=== PATIENT | male | born 2000 | race Caucasian/White ===

== ENCOUNTER 2023-10-25 11:34 | Emergency (ER) | payer OTHER ==
[~2023-10-25] VITALS: Ht 182.9 cm; Wt 108.9 kg
[2023-10-25 11:59] VITALS: BP 131/72; PULSE 74; RESP 18; TEMP 98.3; O2SAT 98
[2023-10-25] MEDS ORDERED: LORA10TA19 PO (13:22)
[2023-10-25] MEDS ORDERED: DIPH25TA53 PO (13:22)
== END 2023-10-25 13:30 | disposition home or self-care (01) ==
LOC: MED 11:34
DX: R21 Rash and other nonspecific skin eruption (principal); R03.0 Elevated blood-pressure reading, without diagnosis of hypertension; Z79.899 Other long term (current) drug therapy
CPT/HCPCS: 99282